=== PATIENT | male | born 1965 | race African-American/Black ===

== ENCOUNTER 2018-04-11 21:18 | Observation (INO) | payer BC ==
[2018-04-11 21:45] LABS: INR-International Normal Ratio 1.1; PTT 26.4 SEC (22.9-36.1); Prothrombin Time 13.8 SEC (12.0-14.7)
[2018-04-11 21:47] LABS: D-Dimer Test 0.36 *mcg/mL (0.27-0.43)
[2018-04-11 21:53] LABS: Hemoglobin 15.1 g/dL (14.0-18.0); Mean Corpuscular HGB CONC 33.7 g/dL (32.0-36.0); Mean Corpuscular Hemoglobin 30.8 pg (27.0-31.0); Mean Corpuscular Volume 91.3 fL (78.0-98.0); Mean Platelet Volume 8.9 fL (7.4-10.4); Platelet Count 239 thou/uL (130-400); RBC Distribution Width 12.2 % (11.5-14.5); Red Blood Cell (RBC) Count 4.89 mill/uL (4.70-6.10); White Blood Cell (WBC) Count 12.8 thou/uL (4.8-10.8)
[2018-04-11 21:56] LABS: Eosinophils 4 % (0-10); Lymphocytes 48 % (21-51); MDiff Complete? YES; Monocytes 4 % (0-10); Neutrophil 42 % (42-75); PLT Morphology Comment Appears Adequate; Reactive Lymphocytes 2 % (0-10)
[2018-04-11 22:06] LABS: ALT (SGPT) 10 U/L (8-55); AST (SGOT) 13 U/L (5-34); Albumin 4.3 g/dL (3.5-5.0); Alkaline Phosphatase 52 U/L (40-150); Anion Gap 11 mmol/L (10-20); BUN (Urea Nitrogen) 12 mg/dL (8.4-25.7); Bilirubin, Total 0.2 mg/dL (0.2-1.2); Calc. Creatinine Clearance 0 mL/min (70-130); Carbon Dioxide 26 mmol/L (22-29); Chloride 101 mmol/L (98-107); Estimated GFR-MDRD Greater than 90; Globulin 3.3 g/dL (2.4-3.5); Glucose 112 mg/dL (70-105); Lipase 25 U/L (8-78); Potassium 3.8 mmol/L (3.5-5.1); Protein, Total 7.6 g/dL (6.0-8.3); Sodium 134 mmol/L (136-145)
--- NOTE | 2018-04-11 22:07 | RAD ---
RADIOGRAPH CHEST 1 VIEW: 04/11/18 HISTORY: 53-year-old male with chest pain. FINDINGS: The image is overexposed. There is no evidence of consolidation. The lateral costophrenic angles ar e sharp. The cardiomediastinal silhouette is normal. IMPRESSION: 1) Limited study. 2) No acute findings. linda [] POS: NAVEEN
[2018-04-11] MEDS ORDERED: Sodium Chloride 0.9% 1,000 ML IV SCH (23:47)
[2018-04-11] MEDS ORDERED: Ondansetron PF 4 MG/2 ML Vial IVP PRN (23:47)
[2018-04-11] MEDS ORDERED: Ondansetron ODT 4 MG TAB SL PRN (23:47)
[2018-04-11] MEDS ORDERED: Acetaminophen 325 MG TAB PO PRN (23:47)
[2018-04-11 23:58] VITALS: BMI 21.4
[2018-04-12] MEDS ORDERED: HYDROcodone/Acetaminophen 5/325 mg Tablet PO PRN (00:22)
[2018-04-12] MEDS ORDERED: Gabapentin 300 MG CAP PO SCH ×2 (01:00→09:00)
[2018-04-12 01:08] LABS: Troponin I Less than 0.010 ng/mL (< 0.028)
[2018-04-12 04:10] LABS: #Basophils 0.1 thou/uL (0.0-0.2); #Eosinphils 0.1 thou/uL (0.0-0.7); #Lymphocytes 3.9 thou/uL (1.20-3.40); #Monocytes 1.1 thou/uL (0.11-0.59); #Neutrophils 7.3 thou/uL (1.40-6.50); %Basophils 0.4 % (0.0-1.0); %Eosinophils 1.2 % (0.0-10.0); %Neutrophils 58.5 % (42.0-75.0); Hemoglobin 14.3 g/dL (14.0-18.0); Mean Corpuscular HGB CONC 33.2 g/dL (32.0-36.0); Mean Corpuscular Hemoglobin 30.1 pg (27.0-31.0); Mean Corpuscular Volume 90.5 fL (78.0-98.0); Platelet Count 232 thou/uL (130-400); RBC Distribution Width 12.2 % (11.5-14.5); Red Blood Cell (RBC) Count 4.74 mill/uL (4.70-6.10); White Blood Cell (WBC) Count 12.5 thou/uL (4.8-10.8)
[2018-04-12 04:29] LABS: Anion Gap 12 mmol/L (10-20); BUN (Urea Nitrogen) 14 mg/dL (8.4-25.7); Calc. Creatinine Clearance 89 mL/min (70-130); Calcium 10.1 mg/dL (7.8-10.44); Carbon Dioxide 26 mmol/L (22-29); Chloride 104 mmol/L (98-107); Estimated GFR-MDRD Greater than 90; Glucose 98 mg/dL (70-105); Sodium 138 mmol/L (136-145)
[2018-04-12 04:30] LABS: Troponin I Less than 0.010 ng/mL (< 0.028)
[2018-04-12] MEDS ORDERED: Amlodipine 10 MG TAB PO SCH (09:00)
[2018-04-12] MEDS ORDERED: Enoxaparin Sodium 40 MG/0.4 ML SYRINGE SC SCH (09:00)
[2018-04-12] MEDS ORDERED: Hydrochlorothiazide 25 MG TAB PO SCH (09:00)
[2018-04-12] MEDS ORDERED: Aspirin 325 MG TAB PO SCH (09:00)
--- NOTE | 2018-04-12 10:09 | HP ---
PRIMARY CARE PHYSICIAN: Dr. Josef Higgins. CODE STATUS: Full code. TIME OF EVALUATION: 1 a.m. CHIEF COMPLAINT: Near syncope. HISTORY OF PRESENT ILLNESS: This is a 53-year-old male patient with past medical history of hypertension, came to the hospital after having an episode of near syncope while he was getting out of the bathroom, with no clear triggers, no alleviating factors. The patient has associated nausea and vomiting prior to near syncope episodes, the patient had rolling eyes as described by the , and hit him on the chest multiple times, and the patient started recovering, never had complete loss of consciousness, symptoms lasted for about one minute, and no clear triggers, improved by itself. REVIEW OF SYSTEMS: CONSTITUTIONAL: No fever, chills, or generalized weakness. RESPIRATORY: No cough, sputum production, or shortness of breath. CARDIOVASCULAR: The patient has chest pain reported during the episode of near syncope. GASTROINTESTINAL: The patient has nausea, no vomiting, no diarrhea, no abdominal pain. CONCRETE SPREADER: No dizziness, headache, or feeling lightheaded. The patient had near syncopal episode. GENITOURINARY: No burning on urination. EXTREMITIES: No leg swelling. All other systems were reviewed and negative except for the findings mentioned above. PAST MEDICAL HISTORY: Hypertension. FAMILY HISTORY: Mother, diabetic. PAST SURGICAL HISTORY: Back surgery. PSYCHIATRIC HISTORY: No previous psych history. SOCIAL HISTORY: No drugs. The patient currently uses tobacco, smokes cigarettes. ALLERGIES: NO KNOWN DRUG ALLERGIES REPORTED. MEDICATIONS: Hydrochlorothiazide, amlodipine, gabapentin, [place]. PHYSICAL EXAMINATION: VITAL SIGNS: On presentation, heart rate 73, respiratory rate was 14, pain was 0/10, blood pressure 127/94, with heart rate 72, respiratory rate of 16, temperature 97.8, and oxygen saturation 98 on room air. GENERAL APPEARANCE: The patient is alert, oriented, not in acute distress. HEENT: Eyes, normal conjunctivae. Moist oral mucosa. Anicteric. No JVD. RESPIRATORY: Bilateral air entry. No rales. No wheezing. Symmetric expansion. CARDIOVASCULAR: Normal rate. Regular rhythm. No murmurs. No gallops. No edema. ABDOMEN: Soft. Normal bowel sounds. MUSCULOSKELETAL: Baseline range of motion and strength. No tenderness. SKIN: Warm and intact. No burn or rash. No redness. EXTREMITIES: Peripheral pulses are present. Capillary refill seems to be intact. NEURO: No evidence of any new focal weakness, numbness, or slurred speech. Cranial nerves seems to be intact. PSYCHIATRIC: The patient is in good mood. No anxiety. Optimal judgment. DIAGNOSTIC STUDIES: EKG was reviewed by myself. The patient has a normal sinus rhythm with a rate of 73, UT interval 166, QRS 74, QT corrected of 140, anterolateral infarct age undetermined. No evidence of acute ischemic event. No significant arrhythmias EKG. RADIOLOGY: Chest x-ray was reviewed. There were no infiltrates, no pneumothorax, no hemothorax, no cardiomegaly. No congestive heart failure. No effusion. LABORATORY DATA: Labs were reviewed. The patient has white count of 12.5, hemoglobin of 14.3, MCV 90, platelet count 232. Chemistry: Sodium 138, potassium 4, carbon dioxide was 26, anion gap 12, BUN 14, and creatinine 1.0. GFR greater than 90. Troponin has been negative x2. Beta natriuretic peptide was normal. ASSESSMENT AND PLAN: The patient was placed in the hospital with the following medical problems: 1. Near syncope, unclear etiology, may be a cardiac etiology, we will do an echo, we will keep the patient on monitor telemetry to look for arrhythmias. We will check with the carotid doppler, further workup will be planned after initial workup resulted. 2. Hyperglycemia. On presentation, glucose 112, this is mild, will be relating to acute physical distress, we will follow, we will treat accordingly. 3. Hyponatremia, on initial presentation sodium 134, this is mild, repeat sodium 138, this has resolved. 4. Mildly elevated leukocytosis of 12.5, does not seem to be significant at this point, we will monitor, we will treat accordingly. 5. Positive chest pain, the patient reports short lasting chest pain. Troponins are negative. EKG is negative. Likely acute coronary syndrome. Further workup can be planned after initial workup is done, we will defer that to my colleagues in the morning. 6. Deep venous thrombosis prophylaxis. 7. Controlled hypertension, this is chronic, reconcile home medications, adjust treatment as needed. Job ID: [id number]
--- NOTE | 2018-04-12 10:29 | ULT ---
CAROTID DUPLEX SONOGRAM: History: Syncope. Vascular disease. FINDINGS: Right: No significant plaque visible. Color and spectral doppler evaluation, peak systolic velocity o f 66 cm/sec, and IC to CC ratio of 0.5 suggests no hemodynamically significant stenosis within the ex tracranial right ICA. Antegrade flow within the vertebral artery. Left: No significant plaque visible. Color and spectral doppler evaluation, peak systolic velocity of 83 cm/sec, and IC to CC ratio of 0.7 suggests no hemodynamically significant stenosis within the ext racranial left ICA. Antegrade flow within the vertebral artery. IMPRESSION: No sonographic evidence of significant extracranial ICA stenosis. POS: JAMIE
[2018-04-12] MEDS ORDERED: ADENOSINE 60 MG/20 ML VIAL ONE (10:54)
[2018-04-12 11:02] LABS: Acetaminophen Less than 6.0 mcg/mL (10.0-30.0); Alcohol Less than 10 mg/dL (Less than 10); Salicylate Less than 8.0 mg/dL (15.0-30.0)
[2018-04-12 11:04] LABS: Cardiac Risk 5.5 (Less than 4.5)
[2018-04-12 11:10] LABS: Amphetamine Not Detected (NotDetected); Barbiturates Screen Not Detected (NotDetected); Benzodiazepine Screen Not Detected (NotDetected); Cocaine Metabolite Screen Not Detected (NotDetected); Medtox Control Line Valid? VALID (VALID); Medtox Reader # READER 1; Methadone Not Detected (NotDetected); Methamphetamine Not Detected (NotDetected); Opiate Screen Detected (NotDetected); Oxycodone Screen Not Detected (NotDetected); Phencyclidine (PCP) Not Detected (NotDetected); THC/Cannabinoid Screen Detected (NotDetected); Tricyclic Screen Not Detected (NotDetected)
[2018-04-12 16:01] VITALS: BP 143/90; TEMP 97.9
--- NOTE | 2018-04-12 17:31 | NM ---
RADIONUCLIDE STRESS REST MYOCARDIAL PERFUSION SCAN WITH CT ATTENUATION CORRECTION AND SPECT IMAGING LEFT VENTRICULAR WALL MOTION EVALUATION AND EJECTION FRACTION 04/12/18 HISTORY: Chest pain. FINDINGS: Adenosine protocol. Homogeneous uptake throughout the left ventricular myocardium. No focal perfusion defect or reversibility. QGS analysis with gated SPECT imaging shows no focal wall motion abnormalities. Ejection fraction foreign culated 57%. IMPRESSION: Normal myocardial perfusion scan. Normal LVEF. POS: [facility]
--- NOTE | 2018-04-13 15:21 | DIS ---
DATE OF ADMISSION: 04/11/2018 DATE OF DISCHARGE: 04/12/2018 PRIMARY CARE PHYSICIAN: Dr. Higgins. CODE STATUS: Full resuscitation. DISCHARGE DIAGNOSES: 1. Gastroesophageal reflux disease/indigestion. 2. Presyncopal episode, possible vasovagal. PROCEDURES: 1. Chest x-ray done on April 11, 2018. Impression, limited study. No acute findings. 2. Carotid Doppler study done on April 12, 2018. Impression, no sonographic evidence of significant extracranial ICA stenosis. 3. Stress test nuclear medicine done on April 12, 2018. Per report, unremarkable. 4. Echocardiogram done on April 12, 2018. Summary; left ventricular size is normal. Ejection fraction visually estimated at 55% to 60%. Left atrium normal in size. HOSPITAL COURSE: The patient admitted from the ED after presenting with a presyncopal episode. Presyncopal episode was preceded by severe indigestion as described the patient. Upon admission to the observation unit for further testing, the patient has experienced no further episodes. Denies any chest pain. Denies any shortness of breath. He has undergone multiple tests as described above. Given unremarkable exams, he has been deemed suitable for discharge to home. REVIEW OF SYSTEMS: CONSTITUTIONAL: No fever, chills, or weakness. RESPIRATORY: No cough, sputum production, or shortness of breath. CARDIOVASCULAR: The patient denies any chest pain. EXTREMITIES: No lower limb swelling or edema. NECK: No JVD. GASTROINTESTINAL: Denies any nausea, vomiting, diarrhea, or abdominal pain. 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 No further syncopal or presyncopal episodes. GENITOURINARY: No dysuria. PHYSICAL EXAMINATION: VITAL SIGNS: Temperature 97.9, pulse 66, respirations 20, O2 sat 98% on room air, and blood pressure 143/90. HEENT: Normocephalic and atraumatic. Pupils are equal, round, and reactive to light. Sclerae are anicteric. Oropharynx is clear. Mucous membranes moist. NECK: Supple without lymphadenopathy. No JVD. LUNGS: Clear to auscultation bilaterally. CARDIOVASCULAR: Regular rate and rhythm. No audible murmurs. ABDOMEN: Soft, nontender, and nondistended. Bowel sounds present. EXTREMITIES: No clubbing, cyanosis, or edema. No calf tenderness. Cap refill less than 2 seconds. SKIN: Normal. warm and dry. Normal skin turgor. ALLERGIES: NO KNOWN DRUG ALLERGIES. HOME MEDICATIONS: 1. Hydrochlorothiazide 12.5 mg p.o. daily. 2. Amlodipine 10 mg p.o. daily. 3. Gabapentin 300 mg p.o. b.i.d. 4. Hydrocodone/acetaminophen 5/325 mg one tablet p.o. every 4 hours p.r.n. 5. Pantoprazole 40 mg p.o. daily. CONDITION AT TIME OF DISCHARGE: The patient is doing well, with no complaints. Ambulating without difficulties. ACTIVITY: As tolerated. DIET: Heart-healthy diet recommended. DISPOSITION: Discharged to home. FOLLOW-UP: Advised to followup with Dr. Higgins within 1 week. The patient was discussed with Dr. Lisa, who agrees with plans for discharge as described above. The patient is aware and agreeable with plan. Job ID: [id number] MTDD
--- NOTE | 2018-04-15 12:06 | EKG ---
Test Reason : RIGHT SIDED EKG Blood Pressure : / mmHG Vent. Rate : 073 BPM Atrial Rate : 073 BPM P-R Int : 166 ms QRS Dur : 074 ms QT Int : 400 ms P-R-T Axes : 083 070 047 degrees QTc Int : 440 ms Normal sinus rhythm Anterolateral infarct , age undetermined Abnormal ECG Confirmed by EMMANUELLE HOLLIS DO ([id number]), online content editor MERCEDES SALGADO ([id number]) on 04/15/2018 12:05:57 PM Referred By: BUNNY Confirmed By:EMMANUELLE HOLLIS DO
--- NOTE | 2018-04-15 12:06 | EKG ---
Test Reason : Blood Pressure : / mmHG Vent. Rate : 066 BPM Atrial Rate : 066 BPM P-R Int : 160 ms QRS Dur : 086 ms QT Int : 412 ms P-R-T Axes : 069 066 047 degrees QTc Int : 431 ms Normal sinus rhythm Moderate voltage criteria for LVH, may be normal variant Borderline ECG Confirmed by EMMANUELLE HOLLIS DO ([id number]), scientific publications editor MERCEDES SALGADO ([id number]) on 04/15/2018 12:05:55 PM Referred By: BUNNY Confirmed By:EMMANUELLE HOLLIS DO
== END 2018-04-12 17:32 | disposition home or self-care (01) ==
LOC: ERS 21:18 → 2SW 23:48
PROVIDERS: ADMIT Hospitalist; ATTEND Hospitalist
DX: R55 Syncope and collapse (principal); K21.9 Gastro-esophageal reflux disease without esophagitis; F17.210 Nicotine dependence, cigarettes, uncomplicated; E87.1 Hypo-osmolality and hyponatremia; R73.9 Hyperglycemia, unspecified; D72.829 Elevated white blood cell count, unspecified; I10 Essential (primary) hypertension; Z79.899 Other long term (current) drug therapy
CPT/HCPCS: 36415; 36416; 71045; 78452; 80048; 80053; 80061; 80306; 80307; 83690; 83880; 84443; 84484; 85025; 85379; 85610; 85730; 93005; 93017; 93306; 93880; 96372; A9500; G0378; J0153; J1650

== ENCOUNTER 2018-04-24 10:29 | Outpatient (CLI) | payer BC ==
--- NOTE | 2018-04-24 12:57 | RAD ---
CERVICAL SPINE 4 VIEWS: Date: 04/24/18 INDICATION: Postop follow-up. FINDINGS: Anterior fusion procedure change noted at C5-6. Anterior plate and screws transfix these levels and t here is interbody implant with partial fusion. Posterior alignment is preserved. Very mild loss of di sc space height at C3-4 and C4-5. No significant hypertrophic change. IMPRESSION: Postop changes at C5-6 noted as described. POS: NAVEEN
== END 2018-04-24 10:30 | disposition home or self-care (01) ==
LOC: RAD 10:29
DX: M54.12 Radiculopathy, cervical region (principal); Z98.1 Arthrodesis status
CPT/HCPCS: 72040

== ENCOUNTER 2018-07-14 11:25 | Outpatient (CLI) | payer OTHER ==
--- NOTE | 2018-07-14 13:04 | RAD ---
CERVICAL SPINE AP AND LATERAL STANDARD: HISTORY: Disability, Z02.71. COMPARISON: 04/24/2018 FINDINGS: Anterior cervical fusion hardware at C5-C6 is similar. No migration of the discectomy spacer. Mild C4-C5 disk space narrowing. No listhesis. No acute fracture of malalignment. The upper ribs are unremarkable. IMPRESSION: 1. Satisfactory postoperative appearance. 2. No acute abnormality. POS: [facility]
== END 2018-07-14 11:26 | disposition home or self-care (01) ==
LOC: BICRAD 11:25
PROVIDERS: ATTEND Psychiatry & Neurology Psychiatry
DX: Z02.71 Encounter for disability determination (principal)
CPT/HCPCS: 72040

== ENCOUNTER 2018-08-28 09:13 | Outpatient (CLI) | payer BC ==
--- NOTE | 2018-08-28 10:11 | RAD ---
XR Lumbar Spine 2 Or 3 View: 08/28/2018 12:00 AM CLINICAL INDICATION: Intervertebral disc disorder with radiculopathy COMPARISON: None. FINDINGS: Fracture:No fracture. Subluxation/translational motion:None of significance. There is multilevel endplate degenerative irregularity and facet sclerosis. Disc space narrowing at L 5-S1 is present. Incidental findings:Atherosclerosis IMPRESSION: 1. No acute osseous abnormality.
--- NOTE | 2018-08-28 10:13 | RAD ---
XR Cerv Sp Ap Lat STANDARD: 08/28/2018 12:00 AM CLINICAL INDICATION: Cervical spondylosis without myelopathy COMPARISON: 07/14/2018 FINDINGS: Fracture:No fracture. Arthropathy:None of significance. Postop findings:ACDF hardware with intervertebral disc space present at C5-6 No hardware complication. No significant subluxation or translational motion. IMPRESSION: 1. No acute osseous abnormality.
== END 2018-08-28 09:14 | disposition home or self-care (01) ==
LOC: RAD 09:13
PROVIDERS: ATTEND Specialist
DX: M51.16 Intervertebral disc disorders with radiculopathy, lumbar region (principal); M96.1 Postlaminectomy syndrome, not elsewhere classified; M47.812 Spondylosis without myelopathy or radiculopathy, cervical region
CPT/HCPCS: 72040; 72100

== ENCOUNTER 2024-12-18 21:28 | Observation (INO) | payer MEDICARE ==
[2024-12-18 23:23] LABS: Hematocrit 43.8 % (42.0-52.0); Hemoglobin 14.5 g/dL (14.0-18.0); Mean Corpuscular Hemoglobin 29.2 pg (27.0-31.0); Mean Corpuscular Volume 88.1 fL (78.0-98.0); Platelet Count 221 10x3/uL (130-400); Red Blood Cell (RBC) Count 4.97 mill/uL (4.70-6.10); White Blood Cell (WBC) Count 18.83 10x3/uL (4.8-10.8)
[2024-12-18 23:38] LABS: ALT (SGPT) 18 U/L (Less than 45); AST (SGOT) 17 U/L (11-34); Albumin 4.2 g/dL (3.1-4.5); Alkaline Phosphatase 45 U/L (40-110); Anion Gap 12 mmol/L (10-20); BUN (Urea Nitrogen) 14 mg/dL (8.4-25.7); Bilirubin, Total 0.4 mg/dL (0.3-1.2); CK (CPK) 206 U/L (30-200); Calc. Creatinine Clearance 0 mL/min (70-130); Calcium 9.3 mg/dL (7.8-10.44); Carbon Dioxide 26 mmol/L (22-29); Chloride 103 mmol/L (98-107); Globulin 3.2 g/dL (2.4-3.5); Glucose 124 mg/dL (70-105); Potassium 3.5 mmol/L (3.5-5.1); Sodium 137 mmol/L (136-145)
[2024-12-19 00:03] LABS: Nucleated RBC (Manual Ct) 1 % (0); Platelet Adequacy Comment Platelets Normal; RBC Morphology Within Normal Limits; Smudge Cells 5.8 %
[2024-12-19] MEDS ORDERED: Ondansetron PF 4 MG/2 ML Vial IVP PRN (01:57)
[2024-12-19] MEDS ORDERED: Acetaminophen 325 MG TAB PO PRN (01:57)
[2024-12-19] MEDS ORDERED: HYDROcodone/Acetaminophen 5/325 mg Tablet PO PRN (02:24)
[2024-12-19 02:42] VITALS: BMI 23.9
[2024-12-19 02:55] LABS: #Basophils 0.06 10x3/uL (0.0-0.2); #Eosinophils 0.05 10x3/uL (0.0-0.7); #Monocytes 1.28 10x3/uL (0.11-0.59); #Neutrophils 12.51 10x3/uL (1.40-6.50); %Basophils 0.3 % (0.0-1.0); %Eosinophils 0.3 % (0.0-10.0); %Lymphocytes 19.5 % (21.0-51.0); %Monocytes 7.4 % (0.0-10.0); %Neutrophils 72.2 % (42.0-75.0); Hematocrit 44.7 % (42.0-52.0); Hemoglobin 14.4 g/dL (14.0-18.0); Mean Corpuscular Hemoglobin 28.9 pg (27.0-31.0); Mean Corpuscular Volume 89.6 fL (78.0-98.0); Platelet Count 232 10x3/uL (130-400); Red Blood Cell (RBC) Count 4.99 mill/uL (4.70-6.10); White Blood Cell (WBC) Count 17.33 10x3/uL (4.8-10.8)
[2024-12-19 03:17] LABS: Anion Gap 13 mmol/L (10-20); BUN (Urea Nitrogen) 18 mg/dL (8.4-25.7); Calc. Creatinine Clearance 80 mL/min (70-130); Calcium 9.2 mg/dL (7.8-10.44); Carbon Dioxide 23 mmol/L (22-29); Chloride 104 mmol/L (98-107); Glucose 116 mg/dL (70-105); Potassium 3.6 mmol/L (3.5-5.1); Sodium 136 mmol/L (136-145)
[2024-12-19] MEDS ORDERED: Gabapentin 300 MG CAP PO SCH (09:00)
[2024-12-19] MEDS: DULoxetine 30 MG CAP PO SCH (10:22)
[2024-12-19] MEDS: Gabapentin 300 MG CAP PO SCH (10:23)
[2024-12-19 18:02] LABS: Cocaine Metabolite Screen Negative (Negative); THC/Cannabinoid Screen PRELIM POSITIVE (Negative); Tricyclic Screen Negative (Negative)
[2024-12-20 00:47] VITALS: TEMP 97.6
[2024-12-20 11:20] VITALS: BP 145/79
== END 2024-12-20 15:15 | disposition home or self-care (01) ==
LOC: ERS 21:28 → 2NO 12-19 00:39
PROVIDERS: ADMIT Internal Medicine; ATTEND Internal Medicine
PROC: B245ZZ4 Ultrasonography of Left Heart, Transesophageal (ICD-10-PCS; principal; 2024-12-19)
DX: R55 Syncope and collapse (principal); I10 Essential (primary) hypertension; E78.5 Hyperlipidemia, unspecified; M54.9 Dorsalgia, unspecified; G89.29 Other chronic pain; Z79.899 Other long term (current) drug therapy
CPT/HCPCS: 70450; 70551; 71045; 73030; 80048; 80053; 80306; 82550; 84484 ×3; 85025 ×2; 93005; 93306; 93880; 96374; 99285; J2270; 36415